=== PATIENT | female | born 1935 | race Caucasian/White ===

== ENCOUNTER 2017-06-22 06:11 | Inpatient (IN) ==
[2017-06-22] MEDS ORDERED: CeFAZolin Syr 2,000MG/20 ML 2,000 MG/20 ML SYRINGE IVPB ONE (06:42)
[2017-06-22] MEDS ORDERED: Lidocaine -MPF 1% 2 ML VIAL ID ONE (06:42)
[2017-06-22] MEDS ORDERED: Ringers Solution, Lactated 1,000 ML IVC SCH ×2 (06:45→11:22)
[2017-06-22] MEDS ORDERED: *HR* FentaNYL (PF) 100 MCG/2 ML VIAL ONE (06:51)
[2017-06-22] MEDS ORDERED: *HR* Rocuronium Bromide 50 MG/5 ML VIAL ONE (06:51)
[2017-06-22] MEDS ORDERED: *HR* HYDROmorphone 2 MG/ML SYRINGE ONE (06:51)
[2017-06-22] MEDS ORDERED: Lidocaine -MPF 2% 2 ML VIAL ONE (06:51)
[2017-06-22] MEDS ORDERED: *HR* Propofol 200 MG/20 ML VIAL IVP ONE (06:51)
--- NOTE | 2017-06-22 07:05 | Anesthesia Evaluation PreOp ---
Date of Encounter: 06/22/17 Time of Encounter: 07:10 - Past History Planned Operation: Total Abdominal Hysterectomy Cardiac History: HTN, Hyperlipidemia Pulmonary History: Denies Any Significant HX [employer]PER History: Denies Any Significant HX Other Medical History: Other (Uterine Prolapse. Hemorrhoids. Breast Cancer.) Anesthesia History: No Prior Anesthetic Complications : No (Not applicable.) Alcohol Use: none Drug use: none Medications and Allergies Aspirin 81 mg PO DAILY 03/31/15 [History] Atorvastatin [Lipitor] 40 mg PO HS 03/31/15 [History] Cholecalciferol (Vitamin D3) [Vitamin D] 2,000 unit PO DAILY 03/31/15 [History] Ibuprofen [Motrin] 600 mg PO Q8HR PRN #30 tablet 03/31/15 [Rx] Vitamin E 400 unit PO DAILY 03/31/15 [History] Echinacea 500 mg PO DAILY 06/22/17 [History] Esomeprazole Magnesium [Nexium] 20 mg PO DAILY 06/22/17 [History] Garlic 1,000 mg PO DAILY 06/22/17 [History] Losartan [Cozaar] 25 mg PO DAILY 06/22/17 [History] [place]-3/Dha/Epa/Fish Oil [Fish Oil 1,000 mg Softgel] 1 cap PO DAILY 06/22/17 [ History] amLODIPine [Norvasc] 5 mg PO DAILY 06/22/17 [History] 3 Allergy/AdvReac Type Severity Reaction Status Date / Time codeine AdvReac Diarrhea Verified 06/22/17 07:15 - Meds/Allergy Pre-op Review Medications Reviewed: Yes Allergies Reviewed: Yes Beta Blockers on Current Med List: No (On Losartan for HTN.) Anesthesia Results - Labs WBC. Hb 15.0 Hct. 44.9 - Imaging EKG: report reviewed (Sinus Rhythm with VR of 60. LAFB.) Anesthesia Exam - HEENT Mallampati: II Teeth: Edentulous Denture Type: Upper: Complete, Lower: Complete Oral Opening: Less than or equal to 3 - Cardiac Murmur: None JVD: No Carotid Bruit: No - Pulmonary Breath Sounds: bilateral Clear Anesthesia Assess/Plan ASA Score: 2 Modified Ronna Scale for Level of Consciousness: Cooperative, oriented, and tranquil Anesthetic Plan: General Monitoring Plan: Standard Monitors Recovery Plan: PACU
--- NOTE | 2017-06-22 07:27 | History & Physical Report ---
Date of Encounter: 06/22/17 Time of Encounter: 07:26 24 Hour HP Update - Instructions Instructions: If the History and Physical is less than 30 days old and was completed prior to A.M. admission and or procedure and has NOT been updated on calendar day of procedure please complete this update prior to performing procedure. - Update Patient reports changes in Medical Condition: No Changes in examination, assessment, or condition: No Changes in Medication: No Preop tests/diagnostics Reviewed: Yes Surgery Remains Indicated: Yes Consent for Planned Operative Procedure(s) Verified: Yes - Pre-Operative Checklist Preoperative Checklist Indicated: Yes Prophylactic Antibiotic Ordered: Yes Home Medications Include Beta Terra: No Is VTE Prophylaxis Indicated?: Yes
[2017-06-22] MEDS ORDERED: *HR* HYDROmorphone (PF) 1 MG/ML SYRINGE IVP PRN (07:38)
[2017-06-22] MEDS ORDERED: Ondansetron 4 MG/2 ML VIAL IVP ONE (07:38)
[2017-06-22] MEDS ORDERED: Neostigmine Methylsulfate 3 MG/3 ML SYRINGE ONE (08:18)
[2017-06-22] MEDS ORDERED: EPHEDrine 50 MG/ML VIAL ONE (08:28)
[2017-06-22] MEDS ORDERED: Ketorolac 30 MG/ML VIAL ONE (08:57)
--- NOTE | 2017-06-22 09:36 | Operative Note ---
Date of procedure: 06/22/17 Pre-op diagnosis: Endometrial thickening, status post menopause, history of LeFort colpocleis Post-op diagnosis: same Procedure: Total abdominal hysterectomy bilateral salpingo-oophorectomy Complications: None Anesthesia: MONIA Surgeon: Marcelino Ramos Cloth Washer Operator: Juliana Costello Cloth Washer Operator Other: winnie Estimated blood loss (cc): 75 Specimen: Uterus cervix bilateral tubes and ovaries Condition: stable Disposition: PACU Procedure in Detail: Indications: This is an 81-year-old female who was seen by general surgery for diverticulitis and had a CT scan showing an endometrial thickening. The cyst was confirmed with a pelvic ultrasound. Patient denied any vaginal bleeding or spotting. Her history is significant for a LeFort colpocleisis therefore an endometrial biopsy could not be performed. Procedure: Patient was taken operative placed in supine position and a general anesthetic was administered. Skin was then prepped and draped in usual sterile fashion and a timeout procedure was performed. A Pfannenstiel incision was performed through the previous surgical scar and extended down to the fascial layer into the abdominal cavity was entered. An O'Deshawn O'Lance retractor was placed in the incision site and the bowel was then gently packed in the upper abdomen with wet lap sponges. Uterus tubes and ovaries were clearly visualized as were both ureters. The infundibular ligaments were transected with the LigaSure device. This was then continued through the mesosalpinx and through the round ligament. A bladder flap was then gently created with sharp dissection. The vessels were then transected with the LigaSure device and the pedicles were then taken down inferiorly to the level of the lower uterine segment. The vagina was then crossclamped and the entire specimen was removed. Vaginal cuff was closed with 0 Vicryl suture in an interrupted [id number] fashion. Pelvic cavity was irrigated with good hemostasis present. The retractor and the packing was removed. The fascial layer was closed with 0 Vicryl suture in a running nonlocking fashion. Subcutaneous layer was irrigated with sterile water and hemostasis was present. Subcutaneous tissue layer was closed with 3-0 Vicryl suture in a running nonlocking fashion. The superficial subcutaneous layer was then closed with 4-0 Vicryl suture continuing to close the skin edges in an running subcuticular fashion. Patient all procedure well, all sponge needle inserted counts reported as correct. Estimated blood loss was 75 mL. Urine in Palacios catheter was clear and yellow. She was taken recovery room in stable condition.
[2017-06-22] MEDS ORDERED: Ondansetron 4 MG/2 ML VIAL IVP PRN (11:22)
[2017-06-22] MEDS ORDERED: Naloxone 0.4 MG/ML INJ IVP PRN (11:22)
[2017-06-22] MEDS ORDERED: *HR* HYDROmorphone 20 MG/20 ML PCA IVC PRN (11:22)
[2017-06-22] MEDS ORDERED: *HR* HYDROmorphone 2 MG/ML SYRINGE IVP PRN (14:11)
--- NOTE | 2017-06-22 16:10 | Anesthesia Evaluation Post Op ---
Date of Encounter: 06/22/17 Time of Encounter: 10:02 - Vital Signs Vital Signs: Vital Signs Temp Pulse Resp BP Pulse Ox 06/22/17 10:10 97.2 F L 54 15 113/55 100 06/22/17 10:00 97.2 F L 53 14 117/55 99 06/22/17 09:50 67 14 114/61 99 06/22/17 09:40 74 15 121/49 100 06/22/17 09:30 98.4 F 73 13 146/73 94 06/22/17 06:55 98.0 F 76 18 137/64 97 Intake and Output 06/22/17 06/22/17 06/22/17 07:59 15:59 23:59 Intake Total 20 / 20 Output Total 660 / 660 Balance -640 / -640 Intake: IV Fluids 20 / 20 Ancef Syringe 2,000 MG/20 ML 2, 20 / 20 000 mg In 20 ml @ 200 mls/hr IVPB PREOP ONE Rx#:[id number] Output: Estimated Blood Loss 75 / 75 Urine Amount (Catheter) 585 / 585 Other: Weight 63.049 kg 63.2 kg Patient Weight 06/22/17 23:59 Weight 63.2 kg - Lungs Lungs: Clear Ascult./Percussion - Airway Airway: Non-obstructed - Cardiovascular Regular Rate - Mental Status Mental Status: Alert & Oriented, Answers Appropriately - Pain Pain Scale: 0 Pain Scale used: Numeric (1 - 10) - Nausea Vomiting Nausea Vomiting: Not Present - Hydration Hydration: Tolerates oral liquids, Palacios catheter - Discharge PostOp Status: Transfer Patient to floor Anes Supervising Prov Stmt: Pt seen/evaluated, VSS and pt has met criteria for discharge to home. - MD Jeniffer
[2017-06-23 06:27] LABS: Basophils % 0.2 %; Eosinophils % 0.2 %; Hematocrit 33.3 % (35.3-44.9); Hemoglobin 11.3 g/dL (11.5-15.4); Immature Granulocytes % 0.4 % (0-4); Lymphocytes # 1.6 K/mcL (0.6-4.6); Lymphocytes % 15.7 %; Mean Corpuscular HGB Conc 33.9 g/dL (31.6-35.5); Mean Corpuscular Hemoglobin 31.7 pg (28.0-33.3); Mean Corpuscular Volume 93.5 fL (83.0-100.0); Mean Platelet Volume 11.1 fL (9.4-12.4); Monocytes # 0.9 K/mcL (0.0-1.3); Monocytes % 8.9 %; Neutrophils # 7.8 K/mcL (1.6-8.9); Platelet Count 167 K/mcL (140-400); Red Blood Count 3.56 M/mcL (3.82-4.97); Red Cell Distribution Width 14.1 % (11.5-14.5); Segmented Neutrophils % 74.6 %
[2017-06-23 06:31] LABS: eGFR For African Americans > 60 (> 60); eGFR For Non-African Americans 52 (> 60)
[2017-06-23 08:54] VITALS: BP 137/84
[2017-06-23] MEDS ORDERED: *HR* OxyCODONE/APAP 5/325 TABLET PO PRN (10:47)
--- NOTE | 2017-06-23 12:03 | Discharge Summary ---
Date of Encounter: 06/23/17 Time of Encounter: 12:05 - Discharge Diagnosis (1) Endometrial thickening on ultra sound Priority: Primary Status: Resolved - Discharge Medications Prescriptions: OxyCODONE/APAP 5/325 [Percocet 5/325 MG] 1 each PO Q6HR PRN #20 tablet PRN Reason: Pain Home Medications: Aspirin 81 mg PO DAILY 03/31/15 [History] Atorvastatin [Lipitor] 40 mg PO HS 03/31/15 [History] Cholecalciferol (Vitamin D3) [Vitamin D3] 2,000 unit PO DAILY 03/31/15 [History] Ibuprofen [Motrin] 600 mg PO Q8HR PRN #30 tablet 03/31/15 [Rx] Vitamin E 400 unit PO DAILY 03/31/15 [History] Echinacea 500 mg PO DAILY 06/22/17 [History] Esomeprazole Magnesium [Nexium] 20 mg PO DAILY 06/22/17 [History] Garlic 1,000 mg PO DAILY 06/22/17 [History] Losartan [Cozaar] 25 mg PO DAILY 06/22/17 [History] [place]-3/Dha/Epa/Fish Oil [Fish Oil 1,000 mg Softgel] 1 cap PO DAILY 06/22/17 [ History] amLODIPine [Norvasc] 5 mg PO DAILY 06/22/17 [History] OxyCODONE/APAP 5/325 [Percocet 5/325 MG] 1 each PO Q6HR PRN #20 tablet 06/23/17 [Rx] Allergies/Adverse Reactions: 3 Allergy/AdvReac Type Severity Reaction Status Date / Time codeine AdvReac Diarrhea Verified 06/22/17 09:53 Data Procedures and tests throughout hospitalization: Laboratory Tests 06/23/17 06/23/17 05:55 05:55 WBC 10.4 RBC 3.56 L Hgb 11.3 L D Hct 33.3 L MCV 93.5 MCH 31.7 MCHC 33.9 RDW 14.1 Plt Count 167 MPV 11.1 Immature Gran % 0.4 Seg Neutrophils % 74.6 Lymphocytes % 15.7 Monocytes % 8.9 Eosinophils % 0.2 Basophils % 0.2 Neutrophils # 7.8 Lymphocytes # 1.6 Monocytes # 0.9 Eosinophils # 0.0 Basophils # 0.0 Creatinine 1.02 Est GFR ( Amer) > 60 Est GFR (Non-Af Amer) 52 L Labs on day of discharge: Labs from last 24 hours 06/23/17 06/23/17 05:55 05:55 WBC 10.4 RBC 3.56 L Hgb 11.3 L D Hct 33.3 L MCV 93.5 MCH 31.7 MCHC 33.9 RDW 14.1 Plt Count 167 MPV 11.1 Immature Gran % 0.4 Seg Neutrophils % 74.6 Lymphocytes % 15.7 Monocytes % 8.9 Eosinophils % 0.2 Basophils % 0.2 Neutrophils # 7.8 Lymphocytes # 1.6 Monocytes # 0.9 Eosinophils # 0.0 Basophils # 0.0 Creatinine 1.02 Est GFR ( Amer) > 60 Est GFR (Non-Af Amer) 52 L Date of admission: 06/22/17 10:30 Primary care physician: Dillon Hartmann MD Discharging clinician: Marcelino Ramos Anticipated date of discharge: 06/23/17 - Patient Status Disposition: Home, Self-Care Condition: Good Functional capacity at discharge: independent ambulation Overall status at discharge: patient is progressing back to baseline - Discharge Instructions Follow Up With: Marcelino Ramos DO [Partnered Physician] - Additional Instructions: No driving for two weeks, do not lift anything more than a gallon of milk - Diet and Activity Activity: increase activity as tolerated Diet: advance to your usual diet Hospital Course CLERICAL ASSOCIATE Reason for admission: other (endometrial thickening on ultrasound, history of LeFort colpocleisis) Procedures: PARDEEP-BSO Time Attestation: Total time spent providing and/or coordinating discharge services: Time Spent: Less than 30 minutes Exam - Constitutional Vitals: Temp Pulse Resp BP Pulse Ox 97.6 F 78 18 137/84 93 06/23/17 08:53 06/23/17 08:53 06/23/17 08:53 06/23/17 08:53 06/23/17 08:53 General appearance IM: A&O X 3, no acute distress - Respiratory Respiratory exam: Absent: respiratory distress - Cardiovascular Cardiovascular exam IM: Absent: irregular rhythm - GI/Abdominal GI/Abdominal exam IM: normal bowel sounds Incision: normal, dry, intact - Extremities Exam Extremities exam IM: Absent: calf tenderness - Other Additional findings: Doing well, tolerating regular diet, voiding well, wanting to go home - VTE Documentation of Mechanical Device: Intermittent pneumatic compression device
[2017-06-24] MEDS ORDERED: amLODIPine 5 MG TABLET PO SCH (09:00)
== END 2017-06-23 12:27 | disposition home or self-care (01) | DRG 742 ==
LOC: SAMDAY 06:11 → 1NENUOBS 10:30